=== PATIENT | male | born 1950 | race Caucasian/White ===

== ENCOUNTER → 2016-07-11 | Outpatient (CLI) | payer MEDICARE, OTHER ==
--- NOTE | 2016-07-11 09:32 | CARDIOVASCULAR REPORT ---
"Cerebrovascular Exam Indications: Follow-up carotid 433.10. IMPRESSIONS 1. The bilateral vertebral arteries are patent with normal antegrade flow. 2. Study suggests 50-69% stenosis involving the right internal carotid artery and the left internal carotid artery. No change from the study of 09-Apr-2015. 3. Study suggests severe stenosis involving the left external carotid artery. No change from the study of 09-Apr-2015. History: Coronary artery disease. Risk factors: Hypertension. Carotid duplex study. Complete study and Doppler flow study including spectral analysis, color and mendoza scale imaging. Height: Height: 172.7cm. Height: 68in. Weight: Weight: 88.5kg. Weight: 194.6lb. Body mass index: BMI: 29.6kg/m^2. Body surface area: BSA: 2.08m^2. Location: Vascular laboratory. Patient status: Outpatient. Tables: Arterial flow: + +--------+--------+ |Location |V sys |V ed | + +--------+--------+ |Right CCA - proximal|85.6cm/s|23.6cm/s| + +--------+--------+ |Right CCA - distal |80.9cm/s|16.5cm/s| + +--------+--------+ |Right ECA |278cm/s |--------| + +--------+--------+ |Right ICA - proximal|136cm/s |24.7cm/s| + +--------+--------+ |Right ICA - mid |155cm/s |34.8cm/s| + +--------+--------+ |Right ICA - distal |182cm/s |42.7cm/s| + +--------+--------+ |Right vertebral |57.5cm/s|--------| + +--------+--------+ |Left CCA - proximal |78.2cm/s|19.6cm/s| + +--------+--------+ |Left CCA - distal |61cm/s |17cm/s | + +--------+--------+ |Left ECA |486cm/s |--------| + +--------+--------+ |Left ICA - proximal |181cm/s |53cm/s | + +--------+--------+ |Left ICA - mid |180cm/s |36.7cm/s| + +--------+--------+ |Left ICA - distal |84.2cm/s|25.1cm/s| + +--------+--------+ |Left vertebral |77.9cm/s|--------| + +--------+--------+ Velocity ratios: + + + + + + | |Right, V sys|Right, V ed|Left, V sys|Left, V ed| + + + + + + |Max ICA/dist CCA|2.25 |2.59 |2.97 |3.12 | + + + + + + (Report amended ) Electronically signed by: Yfn Evans [id number]"
== END ==
LOC: RT 08:28
DX: I25.10 Atherosclerotic heart disease of native coronary artery without angina pectoris (principal); I65.23 Occlusion and stenosis of bilateral carotid arteries; I10 Essential (primary) hypertension; E78.5 Hyperlipidemia, unspecified